=== PATIENT | male | born 1990 ===

== ENCOUNTER 2022-09-01 18:43 | Emergency (ER) | payer BC, OTHER ==
[2022-09-01] MEDS ORDERED: Ibuprofen 600 MG Tab PO ONE (19:36)
[2022-09-01] MEDS ORDERED: Amoxicillin/Clavulanate K 875-125 MG Tab PO ONE (19:36)
[2022-09-01] MEDS ORDERED: Acetaminophen/oxyCODONE 325-5 MG Tab PO ONE (19:36)
== END 2022-09-01 19:55 | disposition home or self-care (01) ==
LOC: MW.ED 18:43
DX: K04.7 Periapical abscess without sinus (principal)
CPT/HCPCS: 99282; A9270; 99283

== ENCOUNTER 2022-10-31 14:43 | Emergency (ER) | payer BC | END 2022-10-31 16:00 | disposition left against medical advice (07) | LOC: MW.ED 14:43 | DX: Z53.21 Procedure and treatment not carried out due to patient leaving prior to being seen by health care provider (principal) ==